=== PATIENT | female | born 1945 ===

== ENCOUNTER 2019-07-21 10:09 | Emergency (ER) | payer MEDICARE, OTHER ==
--- NOTE | 2019-07-21 11:59 | XRAY Report ---
Reason: pain Procedure Date: 07/21/2019 Accession Number: [id number] / [id number] Procedure: XR - Hip w/Pelvis 2-3V LT CPT Code: Final Report FULL RESULT: EXAM: LEFT HIP RADIOGRAPHY EXAM DATE: 07/21/2019 11:19 AM. CLINICAL HISTORY: Left hip pain and decreased range of motion after lifting a heavy box. COMPARISON: None. TECHNIQUE: AP view of the pelvis and 2 views of the left hip. FINDINGS: Bones: Decreased bone mineralization. No fracture. No focal bone lesion. Surgical absence of the bilateral femoral heads and necks. Joints: Postsurgical changes of bilateral total hip arthroplasties. No evidence of loosening of the orthopedic hardware. No hip subluxation or dislocation. Sacroiliac joints are intact. Soft Tissues: Arteriosclerosis. No soft tissue swelling. IMPRESSION: 1. Postsurgical changes of bilateral total hip arthroplasties. No loosening of the orthopedic hardware, fracture, subluxation or dislocation. 2. The remainder is unremarkable. RADIA
--- NOTE | 2019-07-21 12:02 | ED Physician Documentation ---
PD HPI LOWER EXT INJURY - Stated complaint Stated Complaint: L HIP PX - Chief complaint Chief Complaint: Ext Problem - History obtained from History obtained from: Patient - History of Present Illness PD HPI LOW EXT INJURY LOCATION: Left, Hip, Buttock (pain is mainly at SI area/gluteal and radiating down back of leg.) Type of injury: Twist (was lifting some heavy-jesus boxes and felt onset of pain later after that. No abrupt pain.). No: Fall Where injury occurred: Home Timing - onset: How many days ago (2-3) Timing - duration: Days (2-3) Timing - details: Gradual onset, Still present, Waxing and waning Worsened by: Moving. No: Palpating Associated symptoms: No: Weakness, Numbness, Swelling Similar symptoms before: Diagnosis (prior hip surgery with pains on ROM. and has had sciatic pains in the past.) Recently seen: Not recently seen Review of Systems Constitutional: denies: Fever, Chills Nose: denies: Rhinorrhea / runny nose, Congestion Throat: denies: Sore throat Respiratory: denies: Cough : denies: Dysuria, Frequency Skin: denies: Rash, Lesions Neurologic: denies: Focal weakness, Numbness PD PAST MEDICAL HISTORY - Past Medical History Cardiovascular: None Respiratory: None Neuro: None Endocrine/Autoimmune: None - Present Medications Home Medications: Ambulatory Orders Medication Instructions Recorded Confirmed Naproxen 500 mg PO BID #20 tablet 07/21/19 - Allergies Allergies/Adverse Reactions: Allergies Allergy/AdvReac Type Severity Reaction Status Date / Time No Known Drug Allergies Allergy Verified 07/21/19 10:32 PD ED PE NORMAL - Vitals Vital signs reviewed: Yes - General General: Alert and oriented X 3, No acute distress, Well developed/nourished - Neck Neck: Supple, no meningeal sign, No adenopathy - Abdomen Abdomen: Soft, Non tender - Back Back: No CVA TTP, No spinal TTP - Derm Derm: Normal color, Warm and dry, No rash - Extremities Extremities: No edema, No calf tenderness / cord, Other (pain at SI area but not locally tender. Cross leg position and ext rotation cause pain. flexion not hurting. ) - Neuro Neuro: Alert and oriented X 3, No motor deficit, No sensory deficit, Other (normal knee reflexes) Results - Vitals Vitals: Vital Signs - 24 hr 07/21/19 13:22 Temperature 36.7 C Heart Rate 82 Respiratory 16 Rate Blood Pressure 161/89 H O2 Saturation 98 Oxygen O2 Source Room air PD MEDICAL DECISION MAKING - ED course Complexity details: considered differential (She ia having pain more in SI area and has pain with cross leg ext rotation c/w piriform muscle and SI. ), d/w patient Departure - Departure Disposition: 01 Home, Self Care Clinical Impression: Strain of muscle of pelvis Condition: Stable Record reviewed to determine appropriate education?: Yes Instructions: ED Sprain Hip Prescriptions: Naproxen 500 mg PO BID #20 tablet Comments: Your x-ray appears normal with the hip replacements. Your symptoms sound likely to be a muscle strain of the pelvic muscles with the lifting you had done. I would suggest some anti-inflammatory such as naproxen or ibuprofen. You can use a higher dose prescription naproxen or [id number]. Add Tylenol every 6 hours if needed for pain. Limit activity over the next several days to week but do some regular walking and range of motion. Consider also some massage or chiropractic to help loosen the muscles as well. Recheck if not improved well over there in the next several days to week. Discharge Date/Time: 07/21/19 13:25
[2019-07-21] MEDS ORDERED: CHERRY SYRUP 10 ML UDC PO ONE (12:29)
[2019-07-21] MEDS ORDERED: DEXAMETHASONE 10 MG/ML VIAL PO STA (12:29)
[2019-07-21] MEDS ORDERED: KETOROLAC 30 MG/ML VIAL IM STA (12:29)
[2019-07-21 13:24] VITALS: BP 161/89
== END 2019-07-21 13:25 | disposition home or self-care (01) ==
LOC: ED 10:09
DX: S39.013A Strain of muscle, fascia and tendon of pelvis, initial encounter (principal); X50.1XXA Overexertion from prolonged static or awkward postures, initial encounter; Y93.89 Activity, other specified; Y92.009 Unspecified place in unspecified non-institutional (private) residence as the place of occurrence of the external cause
CPT/HCPCS: 73502; 96372; 99283; 99284; A9270

== ENCOUNTER 2022-05-29 14:28 | Outpatient (CLI) | payer MEDICARE ==
--- NOTE | 2022-05-30 09:42 | XRAY Report ---
PROCEDURE: Hip w/Pelvis 2-3V LT INDICATIONS: LEFT HIP PAIN TECHNIQUE: AP pelvis with lateral view(s) of the left hip(s). COMPARISON: Pelvis and left hip radiographs 07/21/2019 FINDINGS: Bones: Patient has undergone bilateral hip arthroplasty. Right hip arthroplasty hardware incompletely imaged. Visualized hardware of both hips appears intact. No evidence of hip dislocation. No acute f ractures or dislocations. Pelvic ring appears intact. No suspicious bony lesions. Soft tissues: The visualized bowel gas pattern is normal. No suspicious soft tissue calcifications. IMPRESSION: No acute osseous abnormality. If symptoms persist, follow-up radiographs and/or CT may b e helpful for further evaluation. Reviewed by: Gabriel Ortez MD on 05/30/2022 9:41 AM PST Approved by: Gabriel Ortez MD on 05/30/2022 9:41 AM PST Station ID: [id number]
== END 2022-05-29 14:29 | disposition home or self-care (01) ==
LOC: DI.S 14:28
PROVIDERS: ATTEND Emergency Medicine
DX: M25.552 Pain in left hip (principal)

== ENCOUNTER 2022-09-12 12:56 | Emergency (ER) | payer MEDICARE ==
[2022-09-12 13:03] VITALS: BP 150/80
--- NOTE | 2022-09-12 14:43 | ED Physician Documentation ---
PD HPI ABD PAIN - Stated complaint Stated Complaint: LFT SIDE PX - Chief complaint Chief Complaint: Abd Pain - History obtained from History obtained from: Patient, Friend - History of Present Illness Timing - onset: How many weeks ago (2) Timing - duration: Weeks (2) Timing - details: Gradual onset, Still present, Waxing and waning Quality: Dull, Pain Location: LLQ Improved by: Laying still Worsened by: Moving, Position, Palpation Associated symptoms: Nausea. No: Vomiting, Diarrhea, Constipation Similar symptoms before: Has not had sx before Recently seen: Not recently seen - Additional information Additional information: Previously well 77-year-old Ysabel Berumen has developed a pain in her left side she can feel a lump that is sticking out there when the pain is on and she sometimes gets a little bit of nausea with this. She has noticed that this is present when she goes to stand up or if she Valsalva's. She has not had the mass stick out and she is able to push it back in but it comes right back out. Review of Systems Constitutional: denies: Fever Throat: denies: Sore throat Respiratory: denies: Cough GI: reports: Abdominal Pain. denies: Vomiting, Diarrhea PD PAST MEDICAL HISTORY - Past Medical History Past Medical History: Yes Cardiovascular: None Respiratory: None Neuro: None Endocrine/Autoimmune: None GI: None CLINICIAN ONCOLOGY: None : None HEENT: None Psych: None Musculoskeletal: Osteoarthritis Derm: None - Past Surgical History Past Surgical History: Yes Ortho: Hip replacement - Present Medications Home Medications: Ambulatory Orders Medication Instructions Recorded Confirmed Naproxen 500 mg PO BID #20 tablet 07/21/19 - Allergies Allergies/Adverse Reactions: Allergies Allergy/AdvReac Type Severity Reaction Status Date / Time No Known Drug Allergies Allergy Verified 09/12/22 13:00 - Social History Does the pt smoke?: No Smoking Status: Never smoker Does the pt have substance abuse?: No - Immunizations Immunizations are current?: Yes - POLST Patient has POLST: No PD ED PE NORMAL - Vitals Vital signs reviewed: Yes (hypertensive mild ) - General General: Alert and oriented X 3, No acute distress, Well developed/nourished - HEENT HEENT: Atraumatic, PERRL, EOMI - Neck Neck: Supple, no meningeal sign, No bony TTP - Respiratory Respiratory: No respiratory distress - Abdomen Abdomen: Normal bowel sounds, Soft, Non tender, Non distended, Other (There is a palpable hernia mass in the left lower quadrant this is easily reducible with minimal pain to the patient. The hernia has no restriction to coming back out) - Back Back: No CVA TTP, No spinal TTP - Derm Derm: Normal color, Warm and dry, No rash Results - Vitals Vitals: Vital Signs - 24 hr 09/12/22 13:00 Temperature 36.8 C Heart Rate 96 Respiratory 16 Rate Blood Pressure 150/80 H O2 Saturation 98 Oxygen O2 Source Room air PD Medical Decision Making - ED course Complexity details: considered differential, d/w patient, d/w family ED course: 77-year-old female has noticed over the past 2 weeks a hernia to her left lower abdomen. She has no evidence of incarceration of the hernia defect is fairly large and does not look like it will cause any problem with incarceration. She does have symptoms associated with this and surgical repair is indicated and I have asked her to follow-up with the surgeon. Departure - Departure Disposition: 01 Home, Self Care Clinical Impression: Abdominal wall hernia Condition: Stable Instructions: ED Hernia Inguinal Follow-Up: Chantelle Esposito ARNP [Primary Care Provider] - Alie Adams MD [Provider Admit Priv/Credential] - Comments: Ysabel today it looks like you have a hernia that is directed through your abdominal wall and this is easily reducible. If you have a problem and this mass sticks out, gets hard, gets painful, and you are unable to get it to go back, come and see us right away. Otherwise a follow-up with the surgeon is indicated for elective surgical repair. These symptoms are not likely to get better without a surgery. Discharge Date/Time: 09/12/22 14:47
== END 2022-09-12 14:47 | disposition home or self-care (01) ==
LOC: ED 12:56
DX: K43.9 Ventral hernia without obstruction or gangrene (principal)
CPT/HCPCS: 99281; 99283

== ENCOUNTER 2022-10-07 08:38 | Outpatient (CLI) | payer MEDICARE ==
--- NOTE | 2022-10-07 14:12 | ONCOLOGY/HEMATOLOGY VISIT ---
HEME/ONC PROGRESS NOTE: CC: Maura Carroll MD ONCOLOGY HISTORY: 1. Innumerable lesions throughout the lumbar spine and pelvis on MRI, 09/04/22; elevated CA153>200; CA27.29>90; neg myeloma markers. a. CT-CAP scan 09/20/22 w/o Soft tissue mass. Diagnostic mammography and breast ultrasound without focal lesions b. Pending biopsy of bone lesions. c. Anastrozole 1 mg daily 09/16/22 2. Lower back pain led to above MRI finding. 3. Large left inguinal hernia ASSESSMENT/PLAN: 1. Metastatic lesions in the bone. Pending further work-up. The clinical pattern and the markedly elevated CA 15-3 indicate this is a breast cancer until proven otherwise. a. has been anastrozole 1 mg daily For the last 2 weeks while awaiting for further work-up and pathology. Tolerating well.. b. Diagnostic bilateral mammography, No formal report yet. c. nuclear bone scan and CT-guided bone biopsy, yet to be done. 2. Metastatic bony disease. on calcium 600 mg daily, vitamin D3 5000 IU daily. Plan to start Zometa infusion when Diagnosis confirmed. 3. Left inguinal hernia. She has been referred her to general surgery Dr. Olsen. I instructed her to start use a hernia belt to relieve symptoms for the time being. 4. Lower back pain. This is due to metastatic disease. Radiating to the right hip. Will have a repeat MRI for pelvis and hip for baseline documentation in this hospital system. a. Encouraged her to use acetaminophen [id number]. Current pain level at a 3/10 HISTORY OF CURRENT ILLNESS/REVIEW OF SYSTEMS: Patient is here with her neighbor for ongoing care regarding above high complexity issues. She has had further Staging work-up after our initial consultation. Here to discuss and decide on next step of investigation. Since last seen, she also visited emergency room for her left lower abdominal pain which found to be left inguinal hernia. She initially presented with worsening lower back pain in 07/2022. She was seen at the walk-in clinic where she underwent x-ray of the back without clear etiology. She was referred to her orthopedic surgeon Dr. Roman who did the No weight loss. Good appetite. She is right-handed. She noted left breast enlargement for the last few years. No heartburn. No nausea. No dysuria or hematuria. No cough. No smoker. Past Medical/Surgical/Family/Social History: No smoke. No drink. . hip replacement in 2015. MRI of the lumbar spine was done on 09/04/22 without contrast - innumerable T2 hyperintense and T1 hypointense lesions throughout the imaged thoracal lumbar spine and pelvis. There was also non-displaced fracture of the right sacral ala, Which the patient attributed to a fall at her garden. PHYSICAL EXAM: Weight 57kg HEENT; no jaundice, Lung; clear to auscultation and percussion. No signs of pleural effusion by percussion. Heart; regular rhythm no murmur BREAST: bilateral examined; Left breast markedly larger than the right. Nipple Inversion noted. No discrete mass. Abdomen; soft nontender, no hepatosplenomegaly, no signs of ascites. Left inguinal hernia large size noted. Extremity; no clubbing, no peripheral edema, no cyanosis, Skin. No new rash. No petechia or purpura. Lymph nodes: no palpable adenopathy in the cervical, supraclavicular fossa, or axilla areas. CT scan chest abdomen pelvis done on 09/20/22 report reviewed. No soft organ masses or metastasis.Heterogeneous appearance of the vertebral bodies. Today's visit involves high complexity decision making for the high risk/life threatening diagnosis of metastatic/recurrent Breast cancer and other comorbidities, requiring anti-cancer/chemotherapy with significant toxicities, that require intensive monitoring, and management of cancer-related symptoms and side effects from anti-cancer treatments as listed in assessment and plan. Medical Decision Making: Number and Complexity of Problems Addressed: High - Acute or chronic illness that poses a threat to life or bodily function, cancer, need for chemotherapy, severe side effects from chemotherapy. Amount and/or complexity of data reviewed and analyzed: Review of external notes, laboratory/radiology results, and test ordering. Assessment requiring independent historian. Discussion of management or test interpretation with external physician Independent interpretation of test performed by another qualified health childbirth and infant care teacher Risk of Complications and/or Morbidity or Mortality of Patient Management: High - o Decision regarding initiation andcontinuation of anti-cancer therapy, o drug therapy requiring intensive monitoring for toxicity o Overall: High Clinical Data: Allergies No Known Drug Allergies Allergy (Verified 09/12/22 13:00) Home Medications Anastrozole 1 tab PO DAILY 09/16/22 [History Last Taken Unknown]
--- NOTE | 2022-10-08 09:39 | Mammography Report ---
BILATERAL DIGITAL DIAGNOSTIC MAMMOGRAM 3D/2D WITH EXAGGERATED CC AXILLARY TAIL: 10/07/2022 CLINICAL: Abnormal thickening at the right axilla on CT. Comparison is made to exams dated: 10/22/2016 mammogram and 08/16/2015 mammogram - [facility]. Both breasts are almost entirely fatty (category a/<25% glandular tissue). No significant masses, calcifications, or other findings are seen in either breast. IMPRESSION: INCOMPLETE: NEEDS ADDITIONAL IMAGING EVALUATION No mammographic evidence of malignancy. A targeted ultrasound is recommended and will immediately follow. Based on the Tyrer Cuzick model (a risk assessment model) the patients lifetime risk is 1.6% and her 10 year risk is 0.0%. According to the ACR, ACS, and NCCN guidelines, an annual breast MRI exam sury g with mammogram is recommended if the patients lifetime risk is 20% or greater. This exam was interpreted at Station ID: [id number]. NOTE: For mammograms, a report in lay terms will be sent to the patient. Approximately 15% of breast malignancies will not be visualized mammographically. In the management of a palpable breast mass, a negative mammogram must not discourage biopsy of a clinically suspicious lesion. Electronically Signed By: Nino Cruz M.D. slc/:10/07/2022 09:52:51 ACR BI-RADS Category 0: Incomplete 3340F PARENCHYMAL PATTERN: (F) - The breast(s) demonstrate(s) diffuse fatty replacement. BI-RADS CATEGORY: (0) - 0 Ultrasound [id number] Immediate follow-up LATERALITY: (B)
--- NOTE | 2022-10-08 09:40 | Ultrasound Report ---
ULTRASOUND OF LEFT BREAST AND AXILLA: 10/07/2022 CLINICAL: RT Axilla Thickening. Comparison is made to exams dated: 10/07/2022 ultrasound, 10/07/2022 mammogram - [facility], 10/22/2016 mammogram, and 08/16/2015 mammogram - [facility]. Color flow ultrasound of the left breast axilla was performed. Sena scale images of the real-time ex amination were reviewed. No significant abnormalities were seen sonographically in the left axilla. IMPRESSION: NEGATIVE There is no sonographic evidence of malignancy. No left axillary mass or adenopathy. Exam findings were discussed with the patient. Patient denies axillary pain. Exam findings were discussed with Dr. Blaise Hoffmann. Reports asymmetric left breast enlargement and lef t nipple inversion. No mass is seen on mammogram. However, left retroareolar ultrasound was not prefo rmed and may be helpful to exclude primary left breast cancer. Lytic bone lesions on outside MRI. Patient is scheduled for bone biopsy. Asymmetric soft tissue thickening at the contralateral right axilla seen on prior CT. Please see separately dictated right axillary US. This exam was interpreted at Station ID: [id number]. Electronically Signed By: Nino Cruz M.D. slc/:10/07/2022 11:11:39 Ultrasound BI-RADS: 1 Negative BI-RADS CATEGORY: (1) - 1 Mammogram [id number] 1 year screening LATERALITY: (B)
--- NOTE | 2022-10-08 09:40 | Ultrasound Report ---
ULTRASOUND OF RIGHT BREAST AND AXILLA: 10/07/2022 CLINICAL: RT Axilla Thickening. Comparison is made to exams dated: 10/07/2022 mammogram - [facility], 10/22/2016 mamm ogram, 08/16/2015 mammogram, and 09/25/2010 mammogram - [facility]. Color flow and real-time ultrasound of the right breast axilla were performed. Sena scale images of the real-time examination were reviewed. No significant abnormalities were seen sonographically in the right axilla. No hyperemia or fluid col lection. IMPRESSION: PROBABLY BENIGN No mass or adenopathy. Asymmetric soft tissue thickening at the right axilla seen on prior CT. No ultrasound correlate. A follow-up CT chest in 1 month is recommended to follow-up the CT finding of soft tissue thickening. If the abnormallty persists, CT guided biopsy could be considered. Exam findings were discussed with the patient. Patient denies axillary pain. Exam findings were discussed with Dr. Blaise Hoffmann. Reports asymmetric left breast enlargement. Lytic bone lesions on outside MRI. Patient is scheduled for bone biopsy. This exam was interpreted at Station ID: [id number]. Electronically Signed By: Nino Cruz M.D. slc/:10/07/2022 10:58:04 Ultrasound BI-RADS: 3 Probably benign BI-RADS CATEGORY: (3) - 3 Unspecified - other [id number] 1 month follow-up LATERALITY: (B)
== END 2022-10-07 08:39 | disposition home or self-care (01) ==
LOC: DI 08:38
PROVIDERS: ATTEND Internal Medicine Hematology & Oncology
DX: R92.8 Other abnormal and inconclusive findings on diagnostic imaging of breast (principal)

== ENCOUNTER 2022-10-17 08:18 | Outpatient (CLI) | payer MEDICARE ==
[2022-10-17 08:25] LABS: PT - PROTHROMBIN TIME 11.2 secs (9.9-12.6)
[2022-10-17 08:32] LABS: PARTIAL THROMBOPLASTIN TIME 25.4 secs (24.9-33.3)
[2022-10-17] MEDS ORDERED: fentaNYL 100 MCG/2 ML VIAL ONE (08:48)
[2022-10-17] MEDS ORDERED: MIDAZOLAM 2 MG/2 ML VIAL ONE (08:48)
[2022-10-17] MEDS ORDERED: LIDOCAINE-MPF 1% 5 ML VIAL ONE ×2 (08:50→10:22)
[2022-10-17] MEDS ORDERED: MIDAZOLAM 2 MG/2 ML VIAL IVP ONE (09:42)
[2022-10-17] MEDS ORDERED: fentaNYL 100 MCG/2 ML VIAL IVP SCH (09:42)
[2022-10-17] MEDS ORDERED: fentaNYL 100 MCG/2 ML VIAL IVP ONE (09:42)
[2022-10-17] MEDS ORDERED: LACTATED RINGERS 1,000 ML IV ONE (10:30)
[2022-10-17] MEDS ORDERED: ACETAMINOPHEN 325 MG TABLET PO SCH (11:15)
[2022-10-17] MEDS ORDERED: ACETAMINOPHEN 325 MG TABLET PO ONE ×2 (11:15→11:16)
[2022-10-17 12:30] VITALS: BP 136/60
--- NOTE | 2022-10-17 15:50 | CT Report ---
PROCEDURE: Bone Biopsy Ndl Deep Sedation analgesia for 60 minutes. INDICATIONS: BONE LESIONS TECHNIQUE: The indications, alternatives, benefits, risks, and possible complications of the procedure were comm unicated to the patient. Informed written consent from the patient was obtained and placed in the art. Continuous EKG and hemodynamic monitoring was started by trained personnel. For radiation dose reduction, the following was used: automated exposure control, adjustment of mA and/or kV according to patient size. The patient was brought to the CT suite and advertising material distributor spiral CT imaging was performed with localization g rid. The appropriate site for percutaneous access to the biopsy target was marked, was prepped and d raped sterilely, and was infused with local anaesthesia. Under CT guidance, a core biopsy trocar and needle set was advanced to the biopsy target, and specimen(s) were obtained. The trocar and needle were then removed, and the patient was sent for post-procedure monitoring. COMPARISON: CT abdomen pelvis 09/20/2022 FINDINGS: Biopsy site: Left iliac Needle: 11 gauge biopsy needle with introducer trocar. Number of passes: 1 Medications: 1% lidocaine for local anaesthesia. IV Fentanyl and Versed for conscious sedation for 60 minutes (see nursing record). Complications: None. IMPRESSION: Successful CT-guided biopsy of left iliac lesion. Reviewed by: Chela Vann MD on 10/17/2022 3:48 PM PDT Approved by: Chela Vann MD on 10/17/2022 3:48 PM PDT Station ID: [id number]
== END 2022-10-17 08:19 | disposition home or self-care (01) ==
LOC: DI 08:18
PROVIDERS: ATTEND Internal Medicine Hematology & Oncology
DX: C79.51 Secondary malignant neoplasm of bone (principal); C50.919 Malignant neoplasm of unspecified site of unspecified female breast; Z17.0 Estrogen receptor positive status [ER+]
CPT/HCPCS: 20225; 36415; 85610; 85730; A9270; J7120; 85049

== ENCOUNTER 2022-10-29 10:34 | Day surgery (SDC) | payer MEDICARE ==
[2022-10-29] MEDS ORDERED: LACTATED RINGERS 1,000 ML IV ONE ×2 (10:40→14:11)
[2022-10-29] MEDS ORDERED: ceFAZolin 2 GM VIAL ONE (10:42)
--- NOTE | 2022-10-29 11:43 | ANESTHESIA ---
Pre-Anesthesia VS, & Labs - Diagnosis breast CA with bone METS - Procedure port placement Vital Signs: Temp Pulse Resp BP Pulse Ox O2 Flow Rate 36.8 C 87 16 156/76 H 96 0 10/29/22 10:59 10/29/22 10:59 10/29/22 10:59 10/29/22 10:59 10/29/22 10:59 10/29/22 10:59 Height: 5 ft 2 in Weight (kg): 57 kg Body Mass Index: 22.9 BMI Classification: Normal - NPO Last Fluid Intake: 0700 Last Food Intake: muffin bites 0700 - Is Patient ?: No - Lab Results Lab results reviewed: Yes Home Medications and Allergies Anastrozole 1 tab PO DAILY 09/16/22 Allergies/Adverse Reactions: Allergies Allergy/AdvReac Type Severity Reaction Status Date / Time No Known Drug Allergies Allergy Verified 10/17/22 08:56 Anes History & Medical History - Anesthetic History Anesthesia Complications: reports: No previous complications Family history of Anesthesia Complications: Denies Family history of Malignant Hyperthermia: Denies - Medical History Cardiovascular: reports: None, 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), 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%) Pulmonary: reports: None Gastrointestinal: reports: Hiatal hernia Urinary: reports: None Neuro: reports: None Musculoskeletal: reports: Osteoarthritis Endocrine/Autoimmune: reports: None Blood Disorders: reports: None Skin: reports: None Smoking Status: Never smoker History of Cancer?: Yes (breast with bone mets, current) - Surgical History Orthopedic: reports: Hip replacement Exam General: Alert, Oriented x3, Cooperative Dental: WNL Mouth Openin Fingerbreadth Neck Mobility: Normal Mallampati classification: II Respiratory: Lungs clear, Decreased breath sounds Cardiovascular: Regular rate Neurological: Normal speech Mental/Cognitive Status: Alert/Oriented X3, Normal for patient Cognitive Status: Within normal limits Plan Anesthesia Type: MAC Consent for Procedure(s) Verified and Reviewed: Yes Code Status: Attempt Resuscitation ASA classification: 3-Severe systemic disease Is this case an emergency?: No
[2022-10-29] MEDS ORDERED: MIDAZOLAM 2 MG/2 ML VIAL ONE (12:38)
[2022-10-29] MEDS ORDERED: fentaNYL 100 MCG/2 ML VIAL ONE (12:39)
[2022-10-29] MEDS ORDERED: PROPOFOL 200 MG/20 ML VIAL IVP ONE (12:41)
[2022-10-29] MEDS ORDERED: LIDOCAINE 2%-EPI 1:100000 20 ML MDV ONE (12:44)
[2022-10-29] MEDS ORDERED: LIDOCAINE-MPF 1% 30 ML VIAL ONE (12:45)
[2022-10-29] MEDS ORDERED: BUPIVACAINE 0.25% PF 30 ML VIAL ONE (12:45)
[2022-10-29] MEDS ORDERED: BUPIVACAINE 0.25% PF 30 ML VIAL SUBQ ONE ×2 (13:27)
[2022-10-29] MEDS ORDERED: LIDOCAINE 2%-EPI 1:100000 20 ML MDV SUBQ ONE ×2 (13:27)
--- NOTE | 2022-10-29 14:20 | OPERATIVE REPORT ---
Operative Report - General Procedure Date: 10/19/22 - Other Other Information/Narrative: PREOPERATIVE DIAGNOSIS: Ysabel has boine cancer thought to be due to metastatic breast cancer. I am asked to place an infusion port for chemotherapy. POSTOPERATIVE DIAGNOSIS: Same NAME OF PROCEDURE: Placement of an Angiodynamic Smart Port 9.6F catheter into the SVC via a left cephalic vein cutdown. SURGEON: Tyler Walters MD, FACS CADASTRAL SURVEYOR SURGEON: low voltage technician ANESTHESIA: Monitored IVS COMPLICATIONS: None ESTIMATED BLOOD LOSS: 5 ml DRAINS: None DESCRIPTION OF OPERATION IS FOLLOWS: After consent for the procedure was obtained, the patient was brought to the operating room, where a surgical time- out was performed, indicating the patient and the procedure to be performed. A rolled towel was placed between the shoulder blades. Monitored IV sedation was initiated. The anterior chest wall, right and left sides, were prepped with chlorhexidine and draped in a sterile fashion. The left arm was placed at the side, and the left chest wall was exposed. 1% lidocaine with epinephrine in a 50/50 mix with 1/4% marcaine was used for local anesthesia throughout the procedure. An incision was made in the skin over the left deltopectoral groove and after the subcutaneous tissue was dissected and the deltopectoral groove was identified, the cephalic vein was identified deep within the deltopectoral groove. The cephalic vein was ligated distally and encircled proximally with 3- 0 silk ligatures. A venotomy was made and a single lumen catheter which had been previously flushed with heparinized saline was placed into the vein. Using fluoroscopy the catheter tip was advanced into the superior vena cava. The proximal 3-0 silk ligature was then use to secure the catheter to the cephalic vein and the catheter was checked to make sure it was not crimped by the 3-0 silk ligature. It easily aspirated blood and infused heparinized saline. The back wall of the cephalic vein was then transected. A subcutaneous pocket was created at the cutdown incision site using electrocautery. The catheter was cut to the appropriate length and attached to the port using the accompanying flange The port was sutured to the pectoralis major muscle and fascia using interrupted 3-0 Prolene suture after the port was placed into the pocket. The port was checked in this position and it aspirated blood and easily instilled heparinized saline. The incision was closed using a running 3-0 Vicryl suture for the subcutaneous tissue and the skin. Steri-Strips were used to reinforce the epidermis. The port again was checked for patency after the skin incision was closed and it functioned appropriately. The site of puncture was marked with indelible ink. Dressings were placed. The patient tolerated the procedure well and was brought to the recovery room with stable vital signs.
--- NOTE | 2022-10-29 14:38 | ANESTHESIA POST OP EVALUATION ---
Anesthesia Post Eval - Post Anesthesia Eval Vitals: Last Vital Signs Temp 36.2 C L 10/29/22 14:09 Pulse 84 10/29/22 14:09 Resp 14 10/29/22 14:09 BP 131/63 H 10/29/22 14:09 Pulse Ox 97 10/29/22 14:09 O2 Flow Rate 0 10/29/22 10:59 CV Function Including HR & BP: Stable Pain Control: Satisfactory Nausea & Vomiting: Negative Mental Status: Baseline Respiratory Status: Airway Patent Hydration Status: Satisfactory Anesthesia Complications: None
[2022-10-29 15:39] VITALS: BP 154/68
--- NOTE | 2022-10-29 16:44 | XRAY Report ---
PROCEDURE: OR C-Arm Procedure INDICATIONS: PORT PLACEMENT FLUORO TIME: 0.06 TECHNIQUE: Single fluoroscopic intraoperative view of the chest was acquired COMPARISON: None. FINDINGS/IMPRESSION: There is a left Port-A-Cath, the tip of which is projected over the distal SVC. Reviewed by: Ashley Carter MD on 10/29/2022 4:42 PM PDT Approved by: Ashley Carter MD on 10/29/2022 4:42 PM PDT Station ID: [id number]
== END 2022-10-29 10:35 | disposition home or self-care (01) ==
LOC: SDS 10:34
PROVIDERS: ATTEND Surgery
DX: C50.919 Malignant neoplasm of unspecified site of unspecified female breast (principal); C79.51 Secondary malignant neoplasm of bone
CPT/HCPCS: 36561; J7120

== ENCOUNTER 2022-11-14 10:41 | Emergency (ER) | payer MEDICARE ==
[2022-11-14] MEDS ORDERED: KETOROLAC 30 MG/ML VIAL IM STA (11:19)
--- NOTE | 2022-11-14 11:35 | ED Physician Documentation ---
PD HPI CHEST PAIN - Stated complaint Stated Complaint: GEN WEAKNESS, STOMACH PX - Chief complaint Chief Complaint: Abd Pain - History obtained from History obtained from: Patient, Friend - History of Present Illness Timing - onset: How many days ago (2) Timing - onset during: Rest Timing - duration: Days (2) Timing - details: Gradual onset, Still present Quality: Sharp, Pain Location: Upper back Radiation: Abdominal Improved by: Rest Worsened by: Movement. No: Palpation Associated symptoms: Other (loss of appetite). 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 She has multiple lesions discovered on MRI scanning. This has been biopsied and reported as ER positive HER2 positive she has started chemotherapy she has a port in place and she has had her second round 4 days ago. 2 days later she began to experience worsening pain in her back and she is experiencing some abdominal pain. She does not have tenderness to the abdomen she has worsening of her pain if she moves. She does not have any visceral symptoms. She has no nausea vomiting diarrhea constipation. She is not short of breath.She is wondering if the calcium infusion she had in the [facility] as a cause of her increased back pain and abdominal pain Review of Systems Constitutional: denies: Fever Eyes: denies: Decreased vision Ears: denies: Ear pain Nose: denies: Rhinorrhea / runny nose, Congestion Throat: denies: Sore throat Cardiac: reports: Chest pain / pressure. denies: Palpitations, Pedal edema, Calf pain Respiratory: denies: Dyspnea, Cough GI: reports: Abdominal Pain. denies: Abdominal Swelling, Nausea, Vomiting, Constipation, Diarrhea : denies: Dysuria, Frequency Skin: denies: Rash Musculoskeletal: reports: Back pain. 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 : None HEENT: None Psych: None Musculoskeletal: Osteoarthritis Derm: None - Past Surgical History Past Surgical History: Yes Ortho: Hip replacement - Present Medications Home Medications: Ambulatory Orders Medication Instructions Recorded Confirmed Lidocaine/Prilocain 2.5% Cream 1 applic TOP PRN PRN 11/04/22 11/14/22 [Emla 2.5% Cream] ondansetron HCL [Ondansetron HCl] 1 tab PO Q8HR PRN 11/04/22 11/14/22 HYDROcod/ACETAM 5/325 [[place] 5/325] 1 - 2 tablet PO Q6H PRN #14 tablet 11/14/22 Losartan Potassium 25 mg PO DAILY 11/14/22 11/14/22 - Allergies Allergies/Adverse Reactions: Allergies Allergy/AdvReac Type Severity Reaction Status Date / Time No Known Drug Allergies Allergy Verified 11/14/22 10:56 - Social History Does the pt smoke?: No Smoking Status: Never smoker Does the pt have substance abuse?: No - Immunizations Immunizations are current?: Yes - POLST Patient has POLST: No PD ED PE NORMAL - Vitals Vital signs reviewed: Yes (hypertensive) - General General: Alert and oriented X 3, No acute distress, Well developed/nourished - HEENT HEENT: Atraumatic, PERRL, EOMI - Neck Neck: Supple, no meningeal sign, No bony TTP - Cardiac Cardiac: RRR, No murmur - Respiratory Respiratory: No respiratory distress, Clear bilaterally - Abdomen Abdomen: Soft, Non tender, No organomegaly - Back Back: No CVA TTP, Other (midline spine tenderness is mild There is specific pain to the lower thoracic spine with movement. She is able to move slowly.) - Derm Derm: Normal color, Warm and dry, No rash - Extremities Extremities: No deformity, No edema - Neuro Neuro: Alert and oriented X 3, receiving associate store 2-12 intact, No motor deficit, No sensory deficit, Normal speech Eye Opening: Spontaneous Motor: Obeys Commands Verbal: Oriented GCS Score: 15 - Psych Psych: Normal mood, Normal affect Results - Vitals Vitals: Vital Signs - 24 hr 11/14/22 10:50 Temperature 36.4 C L Heart Rate 92 Respiratory 18 Rate Blood Pressure 144/82 H O2 Saturation 99 Oxygen O2 Source Room air - EKG (time done) 1046 EKG releavant findings:: EKG personally interpreted by author of this note. 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 Interval significant worsening of the bony metastasis now include all visualized lower cervical, thoracic and upper lumbar spine vertebral bodies with suggestion of acute pathologic fracture involving superior endplate of T11 and interval further loss of T11 vertebral body height compared to previous study. Suggestion of extensive metastatic disease involving bilateral ribs with interval development of pathologic bilateral upper rib fractures as described above additional lytic lesions are likely present in bilateral shoulder joints and sternum without pathologic fracture no gross paraspinous mass is seen marked cardiomegaly, no pericardial effusion. No gross mediastinal or hilar lymph nodes by size criteria. Scarring/atelectasis in posterior lateral periphery of bilateral lung nelson. No pleural effusion or pneumothorax. ED course: 77-year-old female undergoing treatment for cancer metastatic to bone presents today with abdominal pain. She has worsening abdominal pain with flexion of her back. She is able to get fairly comfortable if she is not moving. Today we were able to scan the patient's thoracic spine and find extensive disease progressed extensively from prior study in August. Today we will focus on palliative pain control and we administered Toradol with some improvement in her pain. I will E scribe some narcotic pain reliever for the patient and I have notified the [facility] that the patient will need palliative care. I had a discussion with the patient and she is angry that this is happening to her she has a supportive friend with her. She is resistant to beginning narcotic. I have encouraged the patient to consider this as she will likely need to rely on this. Departure - Departure Disposition: 01 Home, Self Care Clinical Impression: Pain from bone metastases Condition: Stable Instructions: Bone Metastasis Follow-Up: Blaise Hoffmann MD [Physician No Access] - Prescriptions: HYDROcod/ACETAM 5/325 [[place] 5/325] 1 - 2 tablet PO Q6H PRN #14 tablet PRN Reason: Pain Comments: Ysabel, it looks like you have a progression of the bony metastatic disease that you are being treated for. This is the cause of the pain you are having all the way around to your abdomen. You are most likely to have increased pain with movement and symptoms may or may not get worse. My recommendation is to use some ibuprofen to be taken with food and you can take up to 800 mg at a time, as often as 3 times per day. For pain not relieved by this I have E scribed some [place] to the [facility] in [place]. This is a narcotic pain reliever and it will interfere with your cognitive ability and will make you constipated. My recommendation for the constipation is to use some milk of magnesia if you do not have a bowel movement after 2 days. Do not be afraid to take this pain medication if you are in pain that is not relieved by the ibuprofen. You may need to rely on pain medication for some time. I have called the [facility] clinic and let them know that you may need palliative care for the pain.
--- NOTE | 2022-11-14 12:29 | CT Report ---
PROCEDURE: THORACIC SPINE WO INDICATIONS: bony mets with increased symptoms after chemo TECHNIQUE: Noncontrast 3 mm thick sections acquired through the region of interest in the thoracic spine. Sagit antonina and coronal reformats were then constructed. For radiation dose reduction, the following was used : automated exposure control, adjustment of mA and/or kV according to patient size. COMPARISON: CT chest dated 09/20/2022. FINDINGS: Image quality: Excellent. Bones: Compared to previous study, there are now extensive lytic lesions scattered throughout visuali zed lower cervical spine vertebral bodies, thoracic spine vertebral bodies and upper lumbar spine nhung tebral bodies. Chronic-appearing compression deformities are again noted involving T7, T8, T9 and T11 vertebral bodies with interval further loss of T11 vertebral body height compared to previous study suggestive of superimposed acute likely pathologic compression fracture involving superior endplate o f T11. There is interval development of nondisplaced fractures involving right lateral second and thi rd ribs. Stable appearing subacute to chronic right posterior fourth rib fracture is again seen. Inte rval development of slightly displaced left posterior sixth rib is seen. There is also suspicion of i ncomplete/nondisplaced fracture involving left posterior fourth rib series 4 image 29. Diffusely hete rogeneous density throughout bilateral ribs and visualized bilateral shoulder joints are seen. Hetero geneous density and sternum is also seen. No pathologic fracture. Soft tissues: No paravertebral masses or hematomas. Heart size is enlarged, no pericardial effusion. Left chest wall Port-A-Cath tip is in SVC. No thoracic aortic aneurysm. No gross mediastinal or allyn r lymphadenopathy by size criteria. Dependent atelectasis is seen in posterior aspect of bilateral flynn ng nelson. No pleural effusion or pneumothorax. Airway is patent. IMPRESSION: 1. Interval significant worsening of bony metastasis now include all visualized lower cervical, thora cic and upper lumbar spine vertebral bodies with suggestion of acute pathologic fracture involving delgadillo perior endplate of T11 and interval further loss of T11 vertebral body height compared to previous st udy. 2. Suggestion of extensive metastatic disease involving bilateral ribs with interval development of p athologic bilateral upper rib fractures as described above. 3. Additional lytic lesions are likely present in bilateral shoulder joints and sternum without patho logic fracture. 4. No gross paraspinous mass is seen. Marked cardiomegaly, no pericardial effusion. No gross mediasti nal or hilar lymph nodes by size criteria. Scarring/atelectasis in posterior lateral periphery of ashkan ateral lung nelson. No pleural effusion or pneumothorax. Reviewed by: Hector Hilario MD on 11/14/2022 12:28 PM PDT Approved by: Hector Hilario MD on 11/14/2022 12:28 PM PDT Station ID: [id number]
[2022-11-14 12:49] VITALS: BP 138/78
== END 2022-11-14 12:49 | disposition home or self-care (01) ==
LOC: ED 10:41
DX: M54.9 Dorsalgia, unspecified (principal); R10.9 Unspecified abdominal pain; G89.3 Neoplasm related pain (acute) (chronic); C79.51 Secondary malignant neoplasm of bone
CPT/HCPCS: 93005; 96372; 99284

== ENCOUNTER 2023-03-11 21:20 | Outpatient (CLI) | payer MEDICARE | END 2023-03-11 23:59 | disposition short-term general hospital (02) | LOC: EMS 21:20 | DX: I46.9 Cardiac arrest, cause unspecified (principal) | CPT/HCPCS: A0425; A0433 ==